=== PATIENT | female | born 1990 | race Caucasian/White ===

== ENCOUNTER 2016-12-13 09:37 | Emergency (ER) | payer OTHER ==
[2016-12-13] MEDS ORDERED: ACETAMINOPHEN TAB 500 MG TAB PO STA (09:52)
[2016-12-13] MEDS ORDERED: METOCLOPRAMIDE 10 MG TAB PO STA (09:52)
--- NOTE | 2016-12-13 09:54 | ED ---
Fever HPI - General Chief Complaint: Fever Stated Complaint: vomiting,head pain Time Seen by Provider: 12/13/16 09:47 Source: patient, RN notes reviewed Mode of arrival: ambulatory Limitations: no limitations - History of Present Illness Initial Comments: 26-year-old female presents emergency Department chief complaint cough, congestion, body aches over the last 2 days. Patient has not had any recent cough or fever. Patient states she's also her Serina of vomiting. Patient states she is currently almost 18 weeks . Patient has no abdominal complaints including vaginal bleeding, dysuria, hematuria, cramping. Patient states that she's only had a few episodes of vomiting. Patient states that she had multiple sick contacts was symptoms. Patient has ear pain, sore throat. Patient is she does have a headache but doesn't alleviate when her fever goes away. - Related Data Home Medications Medication Instructions Recorded Confirmed No Known Home Medications [No 12/13/16 12/13/16 Known Home Medications] Allergies Allergy/AdvReac Type Severity Reaction Status Date / Time No Known Allergies Allergy Verified 12/13/16 09:44 Review of Systems ROS Statement: Those systems with pertinent positive or pertinent negative responses have been documented in the HPI. ROS Other: All systems not noted in ROS Statement are negative. Past Medical History Past Medical History: Asthma Additional Past Medical History / Comment(s): DOES NOT USE INHALERS. History of Any Multi-Drug Resistant Organisms: None Reported Past Surgical History: Section Past Anesthesia/Blood Transfusion Reactions: No Reported Reaction Past Psychological History: No Psychological Hx Reported Smoking Status: Never smoker Past Alcohol Use History: None Reported Past Drug Use History: None Reported General Exam Limitations: no limitations General appearance: alert, in no apparent distress Head exam: Present: atraumatic, normocephalic, normal inspection Eye exam: Present: normal appearance, PERRL, EOMI. Absent: scleral icterus, conjunctival injection, periorbital swelling ENT exam: Present: normal exam, normal oropharynx, mucous membranes moist, TM's normal bilaterally, normal external ear exam Neck exam: Present: normal inspection, full ROM. Absent: tenderness, meningismus, lymphadenopathy Respiratory exam: Present: normal lung sounds bilaterally. Absent: respiratory distress, wheezes, rales, rhonchi, stridor Cardiovascular Exam: Present: normal rhythm, tachycardia, normal heart sounds. Absent: systolic murmur, diastolic murmur, rubs, gallop, clicks GI/Abdominal exam: Present: soft, normal bowel sounds. Absent: distended, tenderness, guarding, rebound, rigid Neurological exam: Present: alert, oriented X3, CN II-XII intact Skin exam: Present: warm, dry, intact, normal color. Absent: rash Course Vital Signs 12/13/16 09:41 Temperature 101.0 F H Pulse Rate 109 H Respiratory 20 Rate Blood Pressure 128/83 O2 Sat by Pulse 98 Oximetry Medical Decision Making - Medical Decision Making 26-year-old female presented for fever cough congestion. Patient hasn't was a. Patient is 3 days out of her symptoms. Patient will not be started on Tamiflu at this time. Patient will take Tylenol at home for 6 hours as directed for fever control. - Lab Data Lab Results 12/13/16 Range/Units 10:10 Influenza Type A RNA Detected H (Not Detectd) Influenza Type B (PCR) Not Detected (Not Detectd) Disposition Clinical Impression: Influenza Disposition: HOME SELF-CARE Condition: Stable Instructions: Influenza (ED) Additional Instructions: Please return to the Emergency Department if symptoms worsen or any other concerns. Time of Disposition: 11:02
--- NOTE | 2016-12-13 10:37 | XR ---
EXAMINATION TYPE: XR chest 2V DATE OF EXAM: 12/13/2016 10:31 AM COMPARISON: NONE TECHNIQUE: PA and lateral views submitted. HISTORY: Cough and fever FINDINGS: The lungs are clear and there is no pneumothorax, pleural effusion, or focal pneumonia. IMPRESSION: 1. No acute process.
[2016-12-13 11:12] VITALS: BP 116/66; PULSE 98; RESP 17; TEMP 98.4
== END 2016-12-13 11:10 | disposition home or self-care (01) ==
LOC: EC 09:37
DX: O99.512 Diseases of the respiratory system complicating pregnancy, second trimester (principal); J11.1 Influenza due to unidentified influenza virus with other respiratory manifestations; Z3A.18 18 weeks gestation of pregnancy
CPT/HCPCS: 71020; 87502; 99283

== ENCOUNTER → 2016-12-26 | Outpatient (CLI) | payer OTHER ==
--- NOTE | 2016-12-26 13:22 | US ---
EXAMINATION TYPE: US OB >= 14 wk fetus DATE OF EXAM: 12/26/2016 12:40 PM COMPARISON: None CLINICAL HISTORY: Large for dates 036.62X0 LGA, pt stats unknown dates TECHNIQUE: Transabdominal (TA) GESTATIONAL AGE / DATING Physician Established: (19 weeks/4 days) EDC: 05/18/2017 Dates by LMP: Unknown Dates by First Scan: No prior Dates by Current Scan: (17 weeks/3 days) EDC: 06/02/2017 SURVEY IUP: Single PLACENTA: Posterior PREVIA: No Previa GIOVANA: 10.9 cm Normal CERVICAL LENGTH (transabdominal: norm > 3.0cm): 3.5 cm BIOMETRY PRESENTATION: Vertex BPD: 3.7 cm 17 weeks / 2 days HC: 14.4 cm 17 weeks / 4 days AC: 11.4 cm 17 weeks / 1 days FL: 2.5 cm 17 weeks / 3 days ESTIMATED WEIGHT IN GRAMS: 192 grams ESTIMATED WEIGHT IN LBS/OZS: 0 lbs. 7 oz. WEIGHT PERCENTAGE BASED ON ESTABLISHED DATES: <3% HC/AC: 1.26 Normal is 06/02/2017. Single, viable IUP, Growth percentile <3, however pt unsure of dates IMPRESSION: Montero fetus present in a vertex lie with a gestational age of 17 weeks 3 days +/- 12 days. Estima kriss date confinement based on this examination is 06/02/2017.
== END | disposition home or self-care (01) ==
LOC: RADUSWWP 12:07
PROVIDERS: ATTEND Obstetrics & Gynecology
DX: O36.62X0 Maternal care for excessive fetal growth, second trimester, not applicable or unspecified (principal); Z3A.17 17 weeks gestation of pregnancy
CPT/HCPCS: 76805

== ENCOUNTER → 2017-01-29 | Outpatient (CLI) | payer OTHER ==
--- NOTE | 2017-01-14 15:19 | US ---
EXAMINATION TYPE: US OB anatomy transabd DATE OF EXAM: 01/14/2017 2:38 PM COMPARISON: 12/26/2016 HISTORY: 26-year-old female O36.62XO Large For dates. Anatomy scan, 4, para 3 TECHNIQUE: Transabdominal (TA) FINDINGS: EXAM MEASUREMENTS: GESTATIONAL AGE / DATING Physician Established: (20 weeks/1 days) EDC: 06/02/2017 Dates by LMP: Unknown Dates by First Scan: (20 weeks/1 days) EDC: 06/02/2017 Dates by Current Scan for: (19 weeks/2 days +/- 1W2D) EDC: 06/08/2017 SURVEY IUP: Single PLACENTA: Posterior PREVIA: Low Lying, tip of placenta 3.0cm from internal cervical os GIOVANA: 11.1 cm Normal (8.63 - 23.04) CERVICAL LENGTH (transabdominal: norm > 3.0cm): 4.2 cm BIOMETRY PRESENTATION: Vertex LIE: Longitudinal BPD: 4.3 cm 19 weeks / 0 days HC: 16.6 cm 19 weeks / 2 days AC: 14.1 cm 19 weeks / 3 days FL: 3.0 cm 19 weeks / 2 days ESTIMATED WEIGHT IN GRAMS: 287.4 grams ESTIMATED WEIGHT IN LBS/OZS: 0 lbs. 10 oz. WEIGHT PERCENTAGE BASED ON ESTABLISHED DATE: 11 % HC/AC: 1.18 Normal FL/AC: 21.23 HEART RATE: 156 bpm RHYTHM: Normal ANATOMY SEEN (within normal limits): Lateral Vent (< 1 cm) 0.6 cm Cisterna Magna (< 1.1 cm) 0.5 cm Cerebellum (varies with age) 1.8 cm Choroid Plexus (bilateral) Midline Falx Cavus Septi Pellucidi Four Chamber Heart Stomach Situs Diaphragm Kidneys (bilateral) Bladder Legs (bilateral) Three Vessel Cord Cord Insert ANATOMY NOT SEEN OR SUBOPTIMALLY VISUALIZED: Due to lie and maternal body habitus Nuchal Fold Outflow Tracts: LVOT/RVOT Nose / Lips Longitudinal Spine Transverse Spine Arms (bilateral) MATERNAL WALL MEASUREMENT: 4.5 cm from skin to anterior uterine wall (if exam limited due to body appiah bitus). MANAGEMENT RECRUITER NOTES: Viable single IUP measuring 19 weeks 2 days with a heart rate of 156bpm and an est imated delivery date of 06/08/2017 MANAGEMENT RECRUITER NOTES: Anatomy attempted by 2 techs: roya Reynoso and Jeannie Finley Patient scheduled for OB callback for 01/29/17 at 3:40 for anatomy not seen on today's exam. IMPRESSION: 1. Single live intrauterine with estimated gestational age of 20 weeks 1 day by prior datin g scan. Current ultrasound biometry is smaller but concordant (19 weeks 2 days) placing the child at the 11th percentile for weight. 2. Low-lying posterior placenta, 3 cm from the internal cervical os. 3. A number of structures on the survey were suboptimally visualized (nuchal fold, LVOT, RVOT, nose/lips, spine, arms). The patient is scheduled for a rescan of missed anatomy. 4. The remaining structures appear normal.
--- NOTE | 2017-01-30 07:18 | US ---
EXAMINATION TYPE: US OB Call Back DATE OF EXAM: 01/29/2017 4:18 PM COMPARISON: Recent OB ultrasound January 14, 2017. CLINICAL HISTORY: large body habitus O36.62XO Large For Dates. GESTATIONAL AGE / DATING Dates by Initial Survey Scan: (22 weeks/1 days) EDC: 06/02/2017 HEART RATE: 142 bpm RHYTHM: Normal ANATOMY SEEN (second anatomic survey look): Four Chamber Heart: Outflow tracts:? LVOT/RVOT Nose / Lips: Longitudinal Spine: Transverse Spine: Arms (bilateral): nuchal fold: 0.3 cm MATERNAL WALL MEASUREMENT: 5 cm from skin to anterior uterine wall (if exam limited due to body habi tus). Second tech look MP Single live intrauterine gestation is redemonstrated. Low lying placenta is again seen. During real-t harinder scanning above structures noted within normal limits not clearly seen as normal on prior study. S aved images are suboptimal at level of nose and lips and outflow tracts. Other levels felt within nor mal limits on saved images. Exam is overall suboptimal secondary to patient's large body habitus. IMPRESSION: As above
== END | disposition home or self-care (01) ==
LOC: RADUSWWP 01-14 13:34
PROVIDERS: ATTEND Obstetrics & Gynecology
DX: O36.62X0 Maternal care for excessive fetal growth, second trimester, not applicable or unspecified (principal); Z3A.19 19 weeks gestation of pregnancy
CPT/HCPCS: 76811

== ENCOUNTER → 2017-02-26 | Outpatient (CLI) | payer OTHER ==
[2017-02-26 10:58] LABS: Non-African American GFR(MDRD) >60 (>60 ml/min/1.73 sqM)
[2017-02-26 11:07] LABS: CH 29.4; CHCM 33.1; HCT 36.4 % (34.0-46.0); HDW 2.61; HGB 12.4 gm/dL (11.4-16.0); MCH 30.5 pg (25.0-35.0); MCHC 34.2 g/dL (31.0-37.0); MCV 89.3 fL (80.0-100.0); Mean Platelet Volume 8.1; RBC 4.08 m/uL (3.80-5.40); RDW 13.9 % (11.5-15.5); WBC 10.5 k/uL (3.8-10.6)
[2017-02-26 11:30] LABS: Hepatitis B Surface Ag Index 0.05
[2017-02-27 04:09] LABS: Toxoplasma Antibody (IgG) <3.0 IU/mL (<7.2)
[2017-02-27 07:22] LABS: HIV-1/HIV-2 Ab Screen NONREAC (NON REAC)
== END | disposition home or self-care (01) ==
LOC: LABWHC1 09:33
PROVIDERS: ATTEND Obstetrics & Gynecology
DX: Z34.92 Encounter for supervision of normal pregnancy, unspecified, second trimester (principal); Z3A.00 Weeks of gestation of pregnancy not specified
CPT/HCPCS: 36415; 82565; 82950; 85027; 86762; 86777; 86778; 86780; 86850; 86900; 86901; 87340; 87389

== ENCOUNTER → 2017-03-05 | Outpatient (CLI) | payer OTHER ==
[2017-03-05 08:51] LABS: Blood Urea Nitrogen 9 mg/dL (7-17); Non-African American GFR(MDRD) >60 (>60 ml/min/1.73 sqM)
[2017-03-05 12:24] LABS: Glucose 3 Hour, Gest 145 mg/dL
[2017-03-05 17:17] LABS: Treponemal Ab Non-Reactive (Non-Reactive)
[2017-03-06 06:21] LABS: Toxoplasma Antibody (IgG) <3.0 IU/mL (<7.2)
== END | disposition home or self-care (01) ==
LOC: LABWHC1 08:19
PROVIDERS: ATTEND Obstetrics & Gynecology
DX: O24.419 Gestational diabetes mellitus in pregnancy, unspecified control (principal); Z3A.00 Weeks of gestation of pregnancy not specified
CPT/HCPCS: 36415; 82565; 82951; 82952; 84520; 86644; 86645; 86777; 86778; 86780

== ENCOUNTER 2017-04-08 18:26 | Observation (INO) | payer OTHER ==
[2017-04-08 19:11] LABS: Appearance,Urine Cloudy (Clear); Bilirubin,Urine Negative (Negative); Glucose,Urine (UA) Negative (Negative); Ketones,Urine Negative (Negative); Leukocyte Esterase,Urine Negative (Negative); Nitrite,Urine Negative (Negative); PH, Urine 6.5 (5.0-8.0); Particle Count 2317; Protein,Urine Negative (Negative); Specific Gravity,Urine 1.016 (1.001-1.035); Squamous Epithelial Cell,Urine <1 /hpf (0-4); UA Billing (MACRO vs. MICRO) MICRO; Urobilinogen,Urine <2.0 mg/dL (<2.0)
[2017-04-08 19:13] LABS: Basophils % (A) 0 %; CH 29.8; CHCM 34.1; Eosinophils # (A) 0.1 k/uL (0-0.7); Eosinophils % (A) 1 %; HCT 35.5 % (34.0-46.0); HDW 2.73; Luc # (Auto) 0.22; Luc % (Auto) 2; Lymphocytes # (A) 2.2 k/uL (1.0-4.8); Lymphocytes % (A) 21 %; MCH 29.7 pg (25.0-35.0); MCHC 33.8 g/dL (31.0-37.0); MCV 87.8 fL (80.0-100.0); Mean Platelet Volume 8.3; Monocytes # (A) 0.5 k/uL (0-1.0); Monocytes % (A) 5 %; Neutrophils # (A) 7.4 k/uL (1.3-7.7); Neutrophils % (A) 71 %; RBC 4.05 m/uL (3.80-5.40); RDW 13.7 % (11.5-15.5); WBC 10.4 k/uL (3.8-10.6); WBC (Perox) 9.94
[2017-04-08 19:18] LABS: ALT 27 U/L (9-52); AST 16 U/L (14-36); Blood Urea Nitrogen 8 mg/dL (7-17); Glucose 83 mg/dL (74-99); LDH 331 U/L (313-618); Non-African American GFR(MDRD) >60 (>60 ml/min/1.73 sqM); Uric Acid 3.8 mg/dL (3.7-7.4)
[2017-04-08] MEDS ORDERED: ACETAMINOPHEN TAB 325 MG TAB PO PRN ×2 (19:39→20:12)
--- NOTE | 2017-04-08 19:50 | P.HPOB ---
History of Present Illness H&P Date: 04/08/17 Chief Complaint: High blood pressure This patient is a 26-year-old 4 para 3 female estimated date of confinement 06/02/2017 estimated gestational age 32-0/7 weeks from [facility] for evaluation of hypertension and proteinuria. Patient is under the care of Dr. Jackson .'s appears to be complicated by gestational diabetes and intrauterine growth restriction. Patient states that she developed a toothache and unfortunately was unable to see a local dentist and therefore was instructed to go to [facility]. Patient was noted to have a blood pressure there are of 158/102 and trace proteinuria. The physician at [facility] called labor and delivery and transferred the patient to labor and delivery for evaluation. Patient complains of a toothache but otherwise is without other symptomatology. Review of Systems Constitutional: Reports as per HPI Ears, nose, mouth and throat: Reports dental pain Gastrointestinal: Reports heartburn Genitourinary: Reports Menstruation: Reports amenorrhea Past Medical History Past Medical History: Asthma Additional Past Medical History / Comment(s): Gestational diabetes History of Any Multi-Drug Resistant Organisms: None Reported Past Surgical History: Section Past Anesthesia/Blood Transfusion Reactions: No Reported Reaction Past Psychological History: No Psychological Hx Reported Smoking Status: Never smoker Past Alcohol Use History: None Reported Past Drug Use History: None Reported Medications and Allergies Home Medications Medication Instructions Recorded Confirmed Type Acetaminophen Tab [Tylenol Tab] 1,000 mg PO Q6HR 04/08/17 04/08/17 History Pnv,Calcium 72/Iron/Folic Acid 04/08/17 History [ Plus Tablet] Allergies Allergy/AdvReac Type Severity Reaction Status Date / Time No Known Allergies Allergy Verified 12/13/16 09:44 Exam - Vital Signs Vital signs: Intake and Output 04/08/17 04/08/17 04/08/17 06:59 14:59 22:59 Other: Weight 101.151 kg Patient Weight 04/09/17 06:59 Weight 101.151 kg - OBG Physical Exam Abdomen: bowel sounds normal, no diffuse tenderness, no bruit present, no guarding noted, no hepatomegaly, no splenomegaly, no mass Results Ultrasound done on April 02 per maternal medicine shows the fetus to be vertex 2 lbs. 4 oz. which is the 6th percentile with a normal amniotic fluid index. Result Diagrams: 04/08/17 18:55 04/08/17 18:55 Abnormal Lab Results - Last 24 Hours (Table) 04/08/17 Range/Units 18:45 Urine Appearance Cloudy H (Clear) Assessment and Plan (1) Intrauterine growth restriction (IUGR) affecting care of mother, third trimester, single gestation Narrative/Plan: This is a 26-year-old 4 para 3 female 32-0/7 weeks gestation with what appears to be isolated hypertension. She did have one blood pressure that was elevated here of 137/103. Preeclampsia labs are negative and protein here is negative as well. Plan at this time is to admit this patient for observation and serial blood pressures as well as continuous monitoring. If there is any evidence of preeclampsia then we will transfer this patient to a tertiary facility. Status: Acute
[2017-04-08] MEDS: ACETAMINOPHEN TAB 325 MG TAB PO PRN (20:20)
[2017-04-08 20:51] VITALS: RESP 16; BMI 39.4
[2017-04-08 22:08] LABS: Glucose,Whole Blood 104 mg/dL (75-99)
[2017-04-09] MEDS: ACETAMINOPHEN TAB 325 MG TAB PO PRN (00:10)
[2017-04-09 00:13] VITALS: TEMP 96.5
[2017-04-09 04:12] VITALS: BP 127/76; PULSE 79
[2017-04-09 07:15] LABS: Glucose,Whole Blood 95 mg/dL (75-99)
--- NOTE | 2017-04-09 10:37 | P.DS ---
Providers Date of admission: 04/08/17 19:31 Expected date of discharge: 04/09/17 Attending physician: Aubrey Williamson Primary care physician: Stated None Hospital Course: Korin is doing very well this morning. Her vital signs have been much more stable. She's had no elevated blood pressures the last several blood pressure checks. She's angling, voiding and she is tolerating her diet. She voices no complaints. No headache, no epigastric pain, minimal peripheral edema no central edema. Deep tendon reflexes 2+. Heart regular, lungs clear, extremities without pain. heart tones have been reactive in the 140s. Plan discharged home today she will return with a 24 hour urine tomorrow for blood pressure check and NST. She will also follow up with our office on Thursday for blood pressure check and NST. At this time there is no other specific treatments. She is aware to be on modified bedrest at home and to try and take it easy. She does have 3 other small children which is going to make this was somewhat challenging area however she is well aware of her risk of having difficulties or problems due to blood pressure issues and to return should she have any signs or symptoms of preeclampsia or elevated blood pressures. All the questions are answered for her at this time and will have her follow up as above. Patient Condition at Discharge: Good Plan - Discharge Summary New Discharge Prescriptions: New Acetaminophen-Codeine 300-30mg [Tylenol #3] 1 tab PO Q4H PRN #30 tablet PRN Reason: Pain Cephalexin [Keflex] 500 mg PO Q6HR #20 cap No Action Acetaminophen Tab [Tylenol Tab] 1,000 mg PO Q6HR Pnv,Calcium 72/Iron/Folic Acid [ Plus Tablet] 2 tab PO DAILY Discharge Medication List Acetaminophen Tab [Tylenol Tab] 1,000 mg PO Q6HR 04/08/17 [History] Pnv,Calcium 72/Iron/Folic Acid [ Plus Tablet] 2 tab PO DAILY 04/08/17 [ History] Acetaminophen-Codeine 300-30mg [Tylenol #3] 1 tab PO Q4H PRN #30 tablet [Rx] Cephalexin [Keflex] 500 mg PO Q6HR #20 cap 04/09/17 [Rx] Follow up Appointment(s)/Referral(s): Kuester,Aubrey, DO [Doctor of Osteopathic Medicine] - 04/13/17 Activity/Diet/Wound Care/Special Instructions: Patient is to be on modified bedrest at home. Should she have any significant headaches, epigastric pain, significant swelling, visual changes or any other issues she is reported be medially back to labor and delivery. She and her aware of this. We'll have her do a 24-hour urine starting today and a prescription for antibiotic and towel 3 for her tooth infection has been provided. She is also to follow up with her dentist on . Discharge Disposition: HOME SELF-CARE
== END 2017-04-09 11:00 | disposition home or self-care (01) ==
LOC: FBPOP 18:26 → 4FBP 19:31 → INTOOBSV 19:31
PROVIDERS: ADMIT Obstetrics & Gynecology; ATTEND Obstetrics & Gynecology
DX: O36.5930 Maternal care for other known or suspected poor fetal growth, third trimester, not applicable or unspecified (principal); Z3A.32 32 weeks gestation of pregnancy; Z79.899 Other long term (current) drug therapy; O26.893 Other specified pregnancy related conditions, third trimester; K08.89 Other specified disorders of teeth and supporting structures
CPT/HCPCS: 59025; 82565; 83615; 82947; 84450; 84460; 84520; 84550; 85025; 81001; G0463; G0378 ×2; 99215

== ENCOUNTER 2017-04-10 06:44 | Outpatient (CLI) | payer OTHER ==
[2017-04-10 07:34] VITALS: BP 118/65; PULSE 88; TEMP 96.5
[2017-04-10 07:48] LABS: Basophils % (A) 0 %; CH 29.3; CHCM 33.6; Eosinophils # (A) 0.1 k/uL (0-0.7); Eosinophils % (A) 1 %; HCT 34.9 % (34.0-46.0); HDW 2.69; Luc # (Auto) 0.23; Luc % (Auto) 2; Lymphocytes # (A) 2.2 k/uL (1.0-4.8); Lymphocytes % (A) 20 %; MCHC 34.3 g/dL (31.0-37.0); MCV 87.5 fL (80.0-100.0); Mean Platelet Volume 7.8; Monocytes # (A) 0.5 k/uL (0-1.0); Monocytes % (A) 4 %; Neutrophils # (A) 8.1 k/uL (1.3-7.7); Neutrophils % (A) 73 %; RBC 3.99 m/uL (3.80-5.40); RDW 13.5 % (11.5-15.5); WBC 11.1 k/uL (3.8-10.6); WBC (Perox) 11.67
[2017-04-10 07:53] LABS: Uric Acid 4.4 mg/dL (3.7-7.4)
[2017-04-10 12:29] VITALS: RESP 16
== END 2017-04-10 08:30 | disposition home or self-care (01) ==
LOC: FBPOP 06:44
PROVIDERS: ATTEND Obstetrics & Gynecology
DX: O26.93 Pregnancy related conditions, unspecified, third trimester (principal); Z3A.32 32 weeks gestation of pregnancy
CPT/HCPCS: 59025; 83615; 84450; 84460; 84550; 85025; G0463; 99215

== ENCOUNTER → 2017-04-10 | Outpatient (CLI) | payer OTHER | END | disposition home or self-care (01) | LOC: LABWHC1 16:44 | PROVIDERS: ATTEND Obstetrics & Gynecology | DX: O14.90 Unspecified pre-eclampsia, unspecified trimester (principal); Z3A.00 Weeks of gestation of pregnancy not specified | CPT/HCPCS: 81050; 84156 ==

== ENCOUNTER 2017-05-09 15:18 | Outpatient (CLI) | payer OTHER ==
[2017-05-09 15:35] LABS: Glucose,Whole Blood 102 mg/dL (75-99)
[2017-05-09 16:23] VITALS: BP 154/81; PULSE 98; RESP 16; TEMP 96
--- NOTE | 2017-06-03 17:40 | P.MSEPDOC ---
Presenting Problems - Arrival Data Date of Arrival on Unit: 05/09/17 Time of Arrival on Unit: 15:19 Mode of Transport: Ambulatory Medical History - Information : 4 Para: 3 Term: 3 : 0 Abortions: Spontaneous or Elective: 0 Number of Living Children: 3 Vital Signs - Temperature Temperature: 96 F Temperature Source: Temporal Artery Scan - Pulse Pulse Oximetery Pulse Rate: 98 Pulse Assessment Method: Pulse Oximetry - Respirations Respiratory Rate: 16 Oxygen Delivery Method: Room Air O2 Sat by Pulse Oximetry: 97 - Blood Pressure Right Arm Sitting Blood Pressure: 154/81 Blood Pressure Mean: 105 Blood Pressure Source: Automatic Cuff Medical Screen Scoring (Post) - Cervical Exam Dilation: Exam Deferred Effacement: Exam Deferred Membranes: Intact - Uterine Contractions Frequency: N/A Duration: N/A Intensity: N/A - Maternal Vital Signs Maternal Temperature: N/A Maternal Blood Pressure: N/A Signs of Preeclampsia: N/A Maternal Respirations: N/A - Maternal Trauma Maternal Trauma: N/A - Assessment Heart Rate: 130 Heart Rate - NICHD Category: Category I (Normal) = 0 NST: Reactive Position: N/A Station: N/A - Total Score Total Score (Post): 0 - Post Treatment Level of Risk Post Treatment Level of Risk: Low (0-5) Physician Notification (Post) - Physician Notified Physician Notified Date: 05/09/17 Physician Notified Time: 16:09 Spoke With: Dr Márquez New Order Received: Yes - Notification Comment Comment: reported pt's hx, bp results,accucheck result and reactive nst to OB. orders received to dc pt home and [facility] t.o[facility] Dr Márquez Disposition - Disposition OB Disposition: Triage Discharge Date: 05/09/17 Discharge Time: 16:23 I agree with the RN Medical Screening Exam: Yes Risk & Benefit of care provided described in d/c instruction: Yes Diagnosis: SUPERVISION OF OTHER HIGH RISK PREGNANCIES, THIRD TRIMESTER
== END 2017-05-09 16:24 | disposition home or self-care (01) ==
LOC: FBPOP 15:18
PROVIDERS: ATTEND Obstetrics & Gynecology
DX: O09.893 Supervision of other high risk pregnancies, third trimester (principal); Z3A.36 36 weeks gestation of pregnancy
CPT/HCPCS: 59025; G0463; 99213

== ENCOUNTER 2017-05-13 11:05 | Inpatient (IN) | payer OTHER ==
--- NOTE | 2017-05-12 06:25 | P.HPOB ---
History of Present Illness H&P Date: 05/12/17 Chief Complaint: Previous section, multi parity, intrauterine growth restriction, g This patient is a 26-year-old 4 para 3 female estimated date of confinement 06/02/2017 estimated gestational age 37 and one sevenths weeks who presents to labor and delivery for repeat section and tubal ligation secondary to intrauterine growth restriction and gestational diabetes. This patient is a patient of Dr. Williamson's who he and maternal medicine have been following. Patient was seen by maternal medicine last and they have recommended delivery at 37 weeks due to poor growth. Dr. Williamson is currently on vacation and Dr. Choi discussed this with the patient her proceeding with delivery at this time. care appears to be complicated by growth restriction and gestational diabetes and some noncompliance. Patient has had issues with transportation going to maternal- medicine and subsequent follow-up. Review of Systems Constitutional: Denies chills, Denies fever Ears, nose, mouth and throat: Denies headache, Denies sore throat Cardiovascular: Denies chest pain, Denies shortness of breath Respiratory: Denies cough Gastrointestinal: Reports heartburn Genitourinary: Reports Menstruation: Reports amenorrhea Musculoskeletal: Denies myalgias Past Medical History Past Medical History: Asthma Additional Past Medical History / Comment(s): Gestational diabetes History of Any Multi-Drug Resistant Organisms: None Reported Past Surgical History: Section Past Anesthesia/Blood Transfusion Reactions: No Reported Reaction Past Psychological History: No Psychological Hx Reported Smoking Status: Never smoker Past Alcohol Use History: None Reported Past Drug Use History: None Reported - Past Family History Father Family Medical History: Hypertension Medications and Allergies Home Medications Medication Instructions Recorded Confirmed Type Pnv,Calcium 72/Iron/Folic Acid 1 tab PO DAILY 04/08/17 05/09/17 History [ Plus Tablet] Allergies Allergy/AdvReac Type Severity Reaction Status Date / Time No Known Allergies Allergy Verified 05/09/17 15:21 Exam - OBG Physical Exam Abdomen: bowel sounds normal, no diffuse tenderness, no bruit present, no guarding noted, no hepatomegaly, no splenomegaly, no mass Cervix: no lesion, no discharge Results blood work shows she is O positive blood type, rubella low positive, hepatitis B negative, Glucola was abnormal at 156 with an abnormal 3 hour GTT, group B strep was unavailable to me at this time. Ultrasounds including a level III ultrasound shown normal anatomy with intrauterine growth restriction. Assessment and Plan (1) Third trimester Narrative/Plan: This is a 26-year-old 4 para 3 female 37 and one sevenths weeks gestation with gestational diabetes, intrauterine growth restriction, previous section, and requesting permanent sterilization. Per [facility] recommendations are going to proceed with delivery at this time due to concerns for well-being. Plan is repeat low transverse section and bilateral partial salpingectomy. Patient does understand that a tubal ligation is considered permanent however there is a failure rate of approximately 20-25 per thousand procedures done. She understands if she does become she has a 50% chance of tubal or an ectopic . Patient also understands surgery itself has risks including risks of infection, bleeding, possible injury bowel, bladder, vessels, and other organs. She understands she is at increased risk of these complications to her previous pelvic surgeries and subsequent infection that she had with her first . Patient understands risk of DVT and pulmonary embolism. All the patient's questions are answered written consent is obtained. Status: Acute (2) Previous delivery affecting Status: Acute (3) Intrauterine growth restriction (IUGR) affecting care of mother, third trimester, single gestation Status: Acute (4) Family planning Status: Acute
[2017-05-13] MEDS ORDERED: LACTATED RINGERS 1,000 ML IV ONE (11:15)
[2017-05-13] MEDS ORDERED: CITRIC ACID-SODIUM CITRATE 15 ML CUP PO ONE (11:15)
[2017-05-13 11:39] VITALS: BMI 40.7
[2017-05-13] MEDS ORDERED: ceFAZolin 2 GM in SODIUM CHLORIDE 0.9% 100 ML IVPB ONE (12:00)
[2017-05-13 12:14] LABS: Glucose,Whole Blood 73 mg/dL (75-99)
[2017-05-13] MEDS ORDERED: KETOROLAC 30 MG/ML 1 ML VIAL ONE (12:18)
[2017-05-13] MEDS ORDERED: DEXAMETHASONE SOD PHOS (MDV) 100 MG/10 ML VIAL ONE (12:18)
[2017-05-13] MEDS ORDERED: PROPOFOL 10 MG/ML 20 ML VIAL IV ONE (12:18)
[2017-05-13] MEDS ORDERED: SUCCINYLCHOLINE CHLORIDE 100 MG/5 ML SYR IV ONE (12:18)
[2017-05-13] MEDS ORDERED: HYDROmorphone (PF) 1 MG/ML ONE (12:18)
[2017-05-13] MEDS ORDERED: fentaNYL (PF) 50 MCG/ML 2 ML AMP ONE (12:18)
[2017-05-13] MEDS ORDERED: ONDANSETRON 4 MG/2 ML VIAL ONE (12:18)
[2017-05-13] MEDS ORDERED: OXYTOCIN 10 UNIT/ML 1 ML VIAL ONE (12:18)
[2017-05-13 12:50] LABS: Basophils % (A) 0 %; CH 30.2; Eosinophils # (A) 0.1 k/uL (0-0.7); Eosinophils % (A) 1 %; HCT 42.2 % (34.0-46.0); HGB 13.2 gm/dL (11.4-16.0); Luc # (Auto) 0.21; Luc % (Auto) 2; Lymphocytes # (A) 2.3 k/uL (1.0-4.8); Lymphocytes % (A) 16 %; MCH 28.9 pg (25.0-35.0); MCHC 31.4 g/dL (31.0-37.0); MCV 91.9 fL (80.0-100.0); Mean Platelet Volume 9.6; Monocytes # (A) 0.6 k/uL (0-1.0); Monocytes % (A) 4 %; Neutrophils # (A) 10.6 k/uL (1.3-7.7); Neutrophils % (A) 77 %; RBC 4.59 m/uL (3.80-5.40); RDW 14.6 % (11.5-15.5); WBC 13.8 k/uL (3.8-10.6); WBC (Perox) 14.39
[2017-05-13] MEDS ORDERED: ZOLPIDEM 5 MG TAB PO PRN (13:17)
[2017-05-13] MEDS ORDERED: KETOROLAC 30 MG/ML 1 ML VIAL IVP PRN (13:17)
[2017-05-13] MEDS ORDERED: diphenhydrAMINE 50 MG/ML 1 ML VIAL IVP PRN (13:17)
[2017-05-13] MEDS ORDERED: diphenhydrAMINE 25 MG CAP PO PRN (13:17)
[2017-05-13] MEDS ORDERED: ACETAMINOPHEN TAB 325 MG TAB PO PRN (13:17)
[2017-05-13] MEDS ORDERED: SIMETHICONE 80 MG CHEWABLE PO PRN (13:17)
[2017-05-13] MEDS ORDERED: HYDROmorphone PCA 5 MG/25 ML SYRINGE IV PRN (13:17)
[2017-05-13] MEDS ORDERED: NALOXONE 0.4 MG/ML 1 ML VIAL IV PRN (13:17)
[2017-05-13] MEDS ORDERED: Acetaminophen-Codeine 300-30mg TAB PO PRN ×2 (13:17)
[2017-05-13] MEDS ORDERED: ONDANSETRON 4 MG/2 ML VIAL IVP PRN (13:17)
[2017-05-13] MEDS ORDERED: METOCLOPRAMIDE 5 MG/ML 2 ML VIAL IVP PRN (13:17)
--- NOTE | 2017-05-13 13:27 | P.OP ---
Date of Procedure: 05/13/17 Preoperative Diagnosis: #1: 37 and one sevenths week . #2: Intrauterine growth restriction. # 3: Gestational diabetes. #4: Previous section desires repeat. #5: Multi parity desires permanent sterilization. Postoperative Diagnosis: Same Procedure(s) Performed: Repeat low transverse section and bilateral partial salpingectomy. Implants: Anesthesia: GETA (Failed attempted spinal.) Surgeon: Ezequiel Steinberg It Security Specialist #1: Teri Choi Estimated Blood Loss (ml): 800 Pathology: other (Placenta and bilateral fallopian tube segments.) Condition: stable Disposition: floor Indications for Procedure: Please see dictated H&P for intimate details of this patient's admission. In summary this is a 26-year-old 4 para 3 female 37 and one sevenths weeks gestation who is admitted for elective repeat section and permanent sterilization secondary to intrauterine growth restriction and gestational diabetes. Patient's been followed by maternal medicine and they recommended delivery at 37 weeks secondary to the growth restriction. Patient and Dr. Williamson have discussed mode of delivery and she said previous section therefore requests repeat and also requesting permanent sterilization. Patient does understand that a tubal ligation is considered permanent however there is a failure rate of approximately 20-25 per thousand procedures done. She understands surgery itself has risks including risks of infection, bleeding , possible injury bowel, bladder, vessels, and other organs. Patient stands risk of DVT and pulmonary embolism. Patient's questions are answered and a written consent is obtained. Operative Findings: This was a viable female infant Apgars are 8 and 8 delivery time is 1234 hrs. grossly appeared normal and weighed 4 lbs. 6 oz. Description of Procedure: This patient has a Bee catheter placed to straight drain. She is subsequently taken to the operating room where she sat up and spinal anesthesia was attempted. After multiple attempts there unable to place the spinal anesthetic and therefore anesthesiologist recommends to proceed with general anesthesia. Patient therefore is placed in the supine position. She has abdominal prep and drape. She then undergoes rapid sequence general endotracheal anesthesia without incident. With adequate level of anesthesia scalpels and taken in the previous Pfannenstiel incision is incised. A second scalpel is taken down the fascia. Fascia is then scored with a knife and extended bilaterally using the Rosario scissors. Fascia is dissected off the rectus muscles sharply. Peritoneum was already entered and is extended sharply with the Metzenbaum scissors. Bladder blade is placed. Bladder peritoneum was taken off the lower uterine segment. Scalpels and taken a low transverse uterine incision is then made. Is in a hemostat I enter the uterine cavity bluntly and there is loss of clear fluid. The infant is found to be oblique vertex presentation and guided through the incision. Mouth and nares are bulb suctioned we then have delivery the anterior posterior shoulder and rest this 's body. Some vigorous viable female infant Apgars are 8 and 8 delivery time is 1234 hrs. is handed off to the nurses in attendance and then taken special care for evaluation due to its size. The placenta is then manually extracted intact. And sent off to pathology. Uterus is then externalized. The uterus cavity is cleared of all debris. Uterine incision is then closed using 0 Vicryl running locked fashion 2 layers. Bladder peritoneum was then reapproximate with 3-0 Vicryl. Excess fluid is removed from the abdomen and pelvis. Then turned my attention a left fallopian tube approximately 4 cm from the cornual insertion a small window is made to the mesial salpinx. Using a 2-0 silk I doubly ligate a 2 cm segment of the tube. This is then excised and handed off to pathology and cauterization done of the tubal ends. Excellent hemostasis is noted. Turned my attention of right fallopian tube using a similar technique the right fallopian tube has a piece excised. With this done the uterus placed back into the abdomen. Peritoneum was then identified and closed in 0 Vicryl running fashion. Fascia is then closed using 0 PDS. Fascial incision is intact and hemostatic. Subcutaneous tissues and closed using a 3-0 Vicryl. Skin is and closed using dilia and a sterile dressing is applied. All counts are correct 3. There are no complications. Mother's awakened from anesthesia and taken to her birthing suite in satisfactory condition.
[2017-05-13] MEDS ORDERED: MEASLES-MUMPS-RUBELLA VACC/PF 12,500 UNIT/0.5 ML VIAL SQ ONE (19:23)
[2017-05-13] MEDS: ceFAZolin 2 GM in SODIUM CHLORIDE 0.9% 100 ML IVPB SCH (19:42)
[2017-05-13] MEDS: SENNOSIDES-DOCUSATE SODIUM 1 EACH TAB PO SCH (20:34)
[2017-05-14] MEDS: ceFAZolin 2 GM in SODIUM CHLORIDE 0.9% 100 ML IVPB SCH (03:47)
[2017-05-14] MEDS: LACTATED RINGERS 1,000 ML IV SCH ×4 (03:47→21:17)
--- NOTE | 2017-05-14 06:33 | P.PNOBGPC ---
Subjective - Subjective Patient reports: Reports appetite normal, Reports voiding normally, Reports pain well controlled, Reports ambulating normally : doing well Objective - Vital Signs Latest vital signs: Vital Signs Temp Pulse Resp BP Pulse Ox 05/14/17 04:00 98.8 F 75 16 113/69 98 05/14/17 00:00 98.7 F 83 16 119/67 98 05/13/17 20:00 98.4 F 93 18 144/73 98 05/13/17 16:00 96.7 F L 85 16 127/80 98 05/13/17 15:17 82 16 122/69 96 05/13/17 14:48 77 16 126/69 97 05/13/17 14:16 92 16 116/65 97 05/13/17 14:03 83 16 117/68 100 05/13/17 13:48 79 16 122/71 100 05/13/17 13:33 84 16 131/73 100 05/13/17 13:18 96.1 F L 101 H 16 125/86 97 05/13/17 11:14 97.9 F 89 16 132/82 Intake and Output 05/13/17 05/13/17 05/14/17 14:59 22:59 06:59 Intake Total 30 Output Total 800 550 850 Balance -770 -550 -850 Intake: Oral 30 Output: Urine 550 850 Straight 550 Estimated Blood Loss 800 Other: Voiding Method Indwelling Catheter # Voids 0 1 Weight 104.326 kg Patient Weight 05/14/17 06:59 Weight 104.326 kg - Exam Lungs: bilateral: normal Chest: Normal S1, Normal S2 Extremities: Present: normal Abdomen: Present: normal appearance, soft. Absent: distention, tenderness Incision: Present: normal, dry, intact Uterus: Present: normal, firm - Labs Labs: Abnormal Lab Results - Last 24 Hours (Table) 05/13/17 05/13/17 Range/Units 11:30 12:02 WBC 13.8 H (3.8-10.6) k/uL Neutrophils # 10.6 H (1.3-7.7) k/uL POC Glucose (mg/dL) 73 L (75-99) mg/dL Assessment and Plan (1) Third trimester Narrative/Plan: day #1. Patient is resting without complaints. Vital signs are stable and she is afebrile. Uterus is firm nontender her incision is intact and dry. CBC is pending. My impression this is a normal postoperative course. Plan is to advance to a regular diet, encouraged patient to ambulate, allow the patient to shower, check a CBC and continue routine care. Current Visit: No Status: Acute Code(s): Z33.1 - STATE, INCIDENTAL SNOMED Code(s): 73674415 (2) Previous delivery affecting Current Visit: No Status: Acute Code(s): O34.21 - MATERNAL CARE FOR SCAR FROM PREVIOUS * DO NOT USE * SNOMED Code(s): 648421739 (3) Intrauterine growth restriction (IUGR) affecting care of mother, third trimester, single gestation Current Visit: No Status: Acute Code(s): O36.5930 - MATERN CARE FOR OTH OR SUSP POOR FETL GRTH, THIRD TRI, UNSP SNOMED Code(s): 967637488 (4) Family planning Current Visit: Yes Status: Acute Code(s): Z30.09 - ENCOUNTER FOR OTH GENERAL CNSL AND ADVICE ON CONTRACEPTION SNOMED Code(s): 87709153
[2017-05-14] MEDS: SENNOSIDES-DOCUSATE SODIUM 1 EACH TAB PO SCH ×2 (08:12→21:17)
[2017-05-14] MEDS: IBUPROFEN 600 MG TAB PO PRN ×3 (08:13→23:34)
[2017-05-14 08:34] LABS: Basophils % (A) 0 %; CHCM 33.2; Eosinophils % (A) 0 %; HCT 29.9 % (34.0-46.0); HDW 2.62; Luc # (Auto) 0.21; Luc % (Auto) 2; Lymphocytes # (A) 2.7 k/uL (1.0-4.8); Lymphocytes % (A) 21 %; MCH 29.3 pg (25.0-35.0); MCHC 32.2 g/dL (31.0-37.0); Mean Platelet Volume 8.5; Monocytes # (A) 0.7 k/uL (0-1.0); Monocytes % (A) 5 %; Neutrophils # (A) 9.2 k/uL (1.3-7.7); Neutrophils % (A) 72 %; RBC 3.28 m/uL (3.80-5.40); RDW 14.4 % (11.5-15.5); WBC 12.8 k/uL (3.8-10.6); WBC (Perox) 12.93
[2017-05-14 08:37] LABS: HGB 9.6 gm/dL (11.4-16.0)
--- NOTE | 2017-05-15 06:44 | P.PNOBGPC ---
Subjective - Subjective Patient reports: Reports appetite normal, Reports voiding normally, Reports pain well controlled, Reports ambulating normally : doing well, in NICU Objective - Vital Signs Latest vital signs: Vital Signs Temp Pulse Resp BP Pulse Ox 05/15/17 00:00 98 F 90 15 117/68 05/14/17 16:00 98.4 F 92 16 126/63 98 05/14/17 08:10 98.5 F 84 16 124/72 98 Intake and Output 05/14/17 05/14/17 05/15/17 14:59 22:59 06:59 Other: # Voids 1 1 - Exam Lungs: bilateral: normal Chest: Normal S1, Normal S2 Extremities: Present: normal Abdomen: Present: normal appearance, soft. Absent: distention, tenderness Incision: Present: normal, dry, intact Uterus: Present: normal, firm - Labs Labs: Abnormal Lab Results - Last 24 Hours (Table) 05/14/17 Range/Units 08:07 WBC 12.8 H (3.8-10.6) k/uL RBC 3.28 L (3.80-5.40) m/uL Hgb 9.6 L D (11.4-16.0) gm/dL Hct 29.9 L (34.0-46.0) % Neutrophils # 9.2 H (1.3-7.7) k/uL Assessment and Plan (1) Third trimester Narrative/Plan: Post operative day #2. Patient is resting without complaints. Vital signs are stable and she is afebrile. Uterus is firm nontender and she is having normal lochia. Incision is intact and dry. Hemoglobin yesterday was 9.6. Patient's tolerating regular diet, ambulating, urinating without difficulty. Plan today is to continue routine care. Patient will either go home tomorrow or the following day per her decision. Current Visit: No Status: Acute Code(s): Z33.1 - STATE, INCIDENTAL SNOMED Code(s): 54783438 (2) Previous delivery affecting Current Visit: No Status: Acute Code(s): O34.21 - MATERNAL CARE FOR SCAR FROM PREVIOUS * DO NOT USE * SNOMED Code(s): 943933363 (3) Intrauterine growth restriction (IUGR) affecting care of mother, third trimester, single gestation Current Visit: No Status: Acute Code(s): O36.5930 - MATERN CARE FOR OTH OR SUSP POOR FETL GRTH, THIRD TRI, UNSP SNOMED Code(s): 167339704 (4) Family planning Current Visit: Yes Status: Acute Code(s): Z30.09 - ENCOUNTER FOR OTH GENERAL CNSL AND ADVICE ON CONTRACEPTION SNOMED Code(s): 00728711
[2017-05-15] MEDS: IBUPROFEN 600 MG TAB PO PRN ×3 (06:53→21:46)
[2017-05-15] MEDS: SENNOSIDES-DOCUSATE SODIUM 1 EACH TAB PO SCH ×2 (08:19→19:29)
[2017-05-16 00:20] VITALS: RESP 18
--- NOTE | 2017-05-16 06:57 | P.PNOBGPC ---
Subjective - Subjective Patient reports: Reports appetite normal, Reports voiding normally, Reports pain well controlled, Reports ambulating normally : doing well, in NICU Objective - Vital Signs Latest vital signs: Vital Signs Temp Pulse Resp BP Pulse Ox 05/16/17 00:00 98.9 F 88 18 118/58 98 05/15/17 16:00 97.9 F 97 16 138/89 99 05/15/17 08:00 98.6 F 88 16 127/77 98 Intake and Output 05/15/17 05/15/17 05/16/17 14:59 22:59 06:59 Other: # Voids 1 2 # Bowel Movements 1 - Exam Lungs: bilateral: normal Chest: Normal S1, Normal S2 Extremities: Present: normal Abdomen: Present: normal appearance, soft. Absent: distention, tenderness Incision: Present: normal, dry, intact Uterus: Present: normal, firm Assessment and Plan (1) Third trimester Narrative/Plan: Post operative day #3. Patient is resting without complaints wishes to go home. Vital signs are stable and she is afebrile. Uterus is firm nontender and her incision is intact and dry. Patient is tolerating regular diet, ambulating, urinating without difficulty. My impression this is a normal course. Plan is to continue routine care discharge home later today. Current Visit: No Status: Acute Code(s): Z33.1 - STATE, INCIDENTAL SNOMED Code(s): 98142701 (2) Previous delivery affecting Current Visit: No Status: Acute Code(s): O34.21 - MATERNAL CARE FOR SCAR FROM PREVIOUS * DO NOT USE * SNOMED Code(s): 160060555 (3) Intrauterine growth restriction (IUGR) affecting care of mother, third trimester, single gestation Current Visit: No Status: Acute Code(s): O36.5930 - MATERN CARE FOR OTH OR SUSP POOR FETL GRTH, THIRD TRI, UNSP SNOMED Code(s): 008898033 (4) Family planning Current Visit: Yes Status: Acute Code(s): Z30.09 - ENCOUNTER FOR OTH GENERAL CNSL AND ADVICE ON CONTRACEPTION SNOMED Code(s): 85619237
--- NOTE | 2017-05-16 07:03 | P.DS ---
Providers Date of admission: 05/13/17 11:05 Expected date of discharge: 05/16/17 Attending physician: Aubrey Williamson Primary care physician: Stated None - Discharge Diagnosis(es) (1) Third trimester Current Visit: No Status: Acute (2) Previous delivery affecting Current Visit: No Status: Acute (3) Intrauterine growth restriction (IUGR) affecting care of mother, third trimester, single gestation Current Visit: No Status: Acute (4) Family planning Current Visit: Yes Status: Acute Hospital Course: Please see dictated H&P for intimate details of this patient's admission. Brief summary this pleasant 26-year-old 4 para 3 female estimated gestational age 37 weeks and 1 day who is admitted for elective repeat section and tubal ligation secondary to intrauterine growth restriction and gestational diabetes. Patient is admitted undergoes above-named surgery. Please see dictated operative note. Postoperative patient does well and on postoperative 3 is felt to be stable for discharge home follow up with Dr. Williamson 1 week. Procedures: Repeat low transverse section and bilateral partial salpingectomy. Patient Condition at Discharge: Good Plan - Discharge Summary New Discharge Prescriptions: New Acetaminophen-Codeine 300-30mg [Tylenol w/codeine #3] 1 - 2 each PO Q4HR PRN #30 tab PRN Reason: Mild Pain Ibuprofen [Motrin] 600 mg PO Q6HR PRN #40 tab PRN Reason: Mild Pain Or Fever >= 100.5 No Action Pnv,Calcium 72/Iron/Folic Acid [ Plus Tablet] 1 tab PO DAILY Discharge Medication List Pnv,Calcium 72/Iron/Folic Acid [ Plus Tablet] 1 tab PO DAILY 04/08/17 [ History] Acetaminophen-Codeine 300-30mg [Tylenol w/codeine #3] 1 - 2 each PO Q4HR PRN # 30 tab 05/16/17 [Rx] Ibuprofen [Motrin] 600 mg PO Q6HR PRN #40 tab 05/16/17 [Rx] Follow up Appointment(s)/Referral(s): Aubrey Williamson DO [Doctor of Osteopathic Medicine] - 05/20/17 9:45 am (Patient also has a visit on June 24 10:15 AM.) Patient Instructions/Handouts: (DC) Activity/Diet/Wound Care/Special Instructions: No heavy lifting or strenuous activity for 6 weeks. No intercourse or anything per vagina for 6 weeks. Please call if any fever, chills, excessive vaginal bleeding, and/or abdominal pain Discharge Disposition: HOME SELF-CARE
[2017-05-16 08:53] VITALS: BP 136/85; PULSE 96; TEMP 98.6
[2017-05-16] MEDS: SENNOSIDES-DOCUSATE SODIUM 1 EACH TAB PO SCH (08:53)
== END 2017-05-16 08:49 | disposition home or self-care (01) | DRG 766 ==
LOC: 4FBP 11:05
PROVIDERS: ADMIT Obstetrics & Gynecology; ATTEND Obstetrics & Gynecology
PROC: 0UB70ZZ Excision of Bilateral Fallopian Tubes, Open Approach (ICD-10-PCS; 2017-05-13)
PROC: 3E0134Z Introduction of Serum, Toxoid and Vaccine into Subcutaneous Tissue, Percutaneous Approach (ICD-10-PCS; 2017-05-13)
PROC: 10D00Z1 Extraction of Products of Conception, Low, Open Approach (ICD-10-PCS; principal; 2017-05-13 12:32)
DX: O36.5930 Maternal care for other known or suspected poor fetal growth, third trimester, not applicable or unspecified (principal); O24.429 Gestational diabetes mellitus in childbirth, unspecified control; J45.909 Unspecified asthma, uncomplicated; O34.211 Maternal care for low transverse scar from previous cesarean delivery; N85.8 Other specified noninflammatory disorders of uterus; Z3A.37 37 weeks gestation of pregnancy; Z23 Encounter for immunization; Z30.2 Encounter for sterilization; Z37.0 Single live birth; O99.52 Diseases of the respiratory system complicating childbirth; Z79.899 Other long term (current) drug therapy
CPT/HCPCS: 85025; 86850; 86900; 86901; 88302; 88307; 90471; 90707

== ENCOUNTER 2017-09-28 18:54 | Emergency (ER) | payer OTHER ==
[2017-09-28] MEDS ORDERED: ACETAMINOPHEN TAB 325 MG TAB PO STA (19:09)
[2017-09-28] MEDS ORDERED: IBUPROFEN 600 MG TAB PO STA (19:09)
--- NOTE | 2017-09-28 19:11 | ED ---
General Adult HPI - General Chief complaint: Fever Stated complaint: Fever Time Seen by Provider: 09/28/17 19:00 Source: patient, RN notes reviewed Mode of arrival: ambulatory Limitations: no limitations - History of Present Illness Initial comments: Patient is a pleasant 26-year-old female presenting to the emergency Department with fevers. Onset of symptoms was 3 days ago. Patient is having intermittent fever and chills and myalgias. Patient is having headaches. Patient has nausea with occasional vomiting. No abdominal pain or diarrhea. Patient does have some mild dysuria and suprapubic discomfort. Patient states her urine has looked cloudy. Patient did take 2 Tylenol with codeine around an hour ago. - Related Data Home Medications Medication Instructions Recorded Confirmed PARoxetine [Paxil] 20 mg PO DAILY 09/28/17 09/28/17 traZODone HCL 50 mg PO HS 09/28/17 09/28/17 Previous Rx's Medication Instructions Recorded Acetaminophen-Codeine 300-30mg 1 - 2 each PO Q4HR PRN #30 tab 05/16/17 [Tylenol w/codeine #3] Sulfamethox-Tmp 800-160Mg [Bactrim 1 each PO Q12HR #20 tab 09/28/17 DS 800-160 mg] Allergies Allergy/AdvReac Type Severity Reaction Status Date / Time No Known Allergies Allergy Verified 09/28/17 19:43 Review of Systems ROS Statement: Those systems with pertinent positive or pertinent negative responses have been documented in the HPI. ROS Other: All systems not noted in ROS Statement are negative. Constitutional: Reports: fever Eyes: Denies: eye pain ENT: Reports: congestion. Denies: ear pain Respiratory: Reports: cough Cardiovascular: Denies: chest pain Endocrine: Denies: fatigue Gastrointestinal: Reports: nausea, vomiting. Denies: abdominal pain Genitourinary: Reports: dysuria Musculoskeletal: Denies: back pain Skin: Denies: rash Neurological: Denies: weakness Past Medical History Past Medical History: Asthma Additional Past Medical History / Comment(s): Gestational diabetes History of Any Multi-Drug Resistant Organisms: None Reported Past Surgical History: Section, Tubal Ligation Past Anesthesia/Blood Transfusion Reactions: No Reported Reaction Past Psychological History: Anxiety, Depression Smoking Status: Never smoker Past Alcohol Use History: None Reported Past Drug Use History: None Reported - Past Family History Father Family Medical History: Hypertension General Exam Limitations: no limitations General appearance: alert, in no apparent distress Head exam: Present: atraumatic Eye exam: Present: normal appearance, PERRL ENT exam: Present: normal oropharynx Neck exam: Present: normal inspection, full ROM. Absent: meningismus Respiratory exam: Present: normal lung sounds bilaterally Cardiovascular Exam: Present: regular rate, normal rhythm GI/Abdominal exam: Present: soft. Absent: tenderness Extremities exam: Present: normal inspection Neurological exam: Present: alert Psychiatric exam: Present: normal affect, normal mood Skin exam: Present: normal color Course Vital Signs 09/28/17 09/28/17 18:55 20:28 Temperature 101.3 F H 100.9 F H Pulse Rate 142 H 84 Respiratory 18 16 Rate Blood Pressure 128/74 118/65 O2 Sat by Pulse 98 96 Oximetry Medical Decision Making - Medical Decision Making Patient reevaluated and resting comfortably in bed. Patient is somewhat improved. Patient and family updated on results and plan. Patient likely has a viral upper respiratory infection with an additional urinary tract infection. Patient will be covered with antibiotics for urinary tract infection and is advised to have her doctor follow-up with urine culture results. - Lab Data Lab Results 09/28/17 09/28/17 Range/Units 19:10 19:10 Urine Color Yellow Urine Appearance Cloudy H (Clear) Urine pH 6.5 (5.0-8.0) Ur Specific [place] 1.009 (1.001-1.035) Urine Protein 2+ H (Negative) Urine Glucose (UA) 2+ H (Negative) Urine Ketones Negative (Negative) Urine Blood Small H (Negative) Urine Nitrite Negative (Negative) Urine Bilirubin Negative (Negative) Urine Urobilinogen <2.0 (<2.0) mg/dL Ur Leukocyte Esterase Large H (Negative) Urine RBC 6 H (0-5) /hpf Urine WBC >182 H (0-5) /hpf Ur Squamous Epith Cells 3 (0-4) /hpf Influenza Type A RNA Not Detected (Not Detectd) Influenza Type B (PCR) Not Detected (Not Detectd) Disposition Clinical Impression: Urinary tract infection, Upper respiratory infection Disposition: HOME SELF-CARE Condition: Stable Instructions: Urinary Tract Infection in Women (ED), Fever in Adults (ED), Upper Respiratory Infection (ED) Additional Instructions: Continue [id number] Tylenol and Motrin as needed. Return for weakness, vomiting, difficulty breathing, worsening or changing symptoms or other concerns. Prescriptions: Sulfamethox-Tmp 800-160Mg [Bactrim DS 800-160 mg] 1 each PO Q12HR #20 tab Referrals: Sandro Healy MD [Primary Care Provider] - 1-2 days Time of Disposition: 20:39
[2017-09-28 20:11] LABS: Appearance,Urine Cloudy (Clear); Bilirubin,Urine Negative (Negative); Glucose,Urine (UA) 2+ (Negative); Ketones,Urine Negative (Negative); Leukocyte Esterase,Urine Large (Negative); Nitrite,Urine Negative (Negative); PH, Urine 6.5 (5.0-8.0); Particle Count 90562; Protein,Urine 2+ (Negative); RBC,Urine 6 /hpf (0-5); Specific Gravity,Urine 1.009 (1.001-1.035); Squamous Epithelial Cell,Urine 3 /hpf (0-4); UA Billing (MACRO vs. MICRO) MICRO; Urobilinogen,Urine <2.0 mg/dL (<2.0); WBC,Urine >182 /hpf (0-5)
[2017-09-28 20:29] VITALS: BP 118/65; PULSE 84; RESP 16; TEMP 100.9
[2017-09-28] MEDS ORDERED: SULFAMETH-TMP DS STARTER PACK 2 TAB BTL PO STA (20:40)
== END 2017-09-28 20:47 | disposition home or self-care (01) ==
LOC: EC 18:54
DX: N39.0 Urinary tract infection, site not specified (principal); J06.9 Acute upper respiratory infection, unspecified; F41.9 Anxiety disorder, unspecified; F32.9 Major depressive disorder, single episode, unspecified; Z79.899 Other long term (current) drug therapy; Z98.51 Tubal ligation status
CPT/HCPCS: 81001; 87502; 99283